=== PATIENT | female | born 1995 | race Caucasian/White ===

== ENCOUNTER 2016-05-27 12:15 | Day surgery (SDC) | payer MEDICAID ==
[~2016-05-27] VITALS: Ht 190.5 cm; Wt 114.9 kg
[2016-05-27] VITALS (25 sets, daily range): BP systolic 110–143; BP diastolic 56–94; PULSE 65–104; RESP 14–22; TEMP 97.2–98.5; O2SAT 93–100; Ht 190.5 cm; Wt 114.9 kg
[~2016-05-27 12:15] MED LIST: No current meds.
[2016-05-27] MEDS ORDERED: LR 1,000 ML IV PRN (12:40)
[2016-05-27] MEDS ORDERED: BUDE180A ORAL INH (12:46)
[2016-05-27] MEDS ORDERED: ALBU6.7H INH (12:46)
[2016-05-27] MEDS ORDERED: PREN1TAB73 PO (12:46)
--- NOTE | 2016-05-27 12:55 | ANESPREOP ---
Anesthesia Record Date and Time DATE: 05/27/16 TIME: 12:47 Pre-Op Diagnosis ectopic Proposed Surgical Procedure Laparoscopy Allergies: Coded Allergies: No Known Allergies (Unverified , 04/30/16) Ht/Wt/BMI Height: 6 ' 3.00 " Weight: kg BMI: kg/m2 Medications Inpatient Medications Current Medications Medications (Trade) Dose Ordered Sig/Lew Start Time Stop Time Status Last Admin Dose Admin Lactated Ringer's (Lactated Ringers) 1,000 ml @ 0 mls/hr Q0M PRN 05/27/16 12:40 Albuterol Sulfate (Proventil HFA 90 mcg/actuation) 200 Puff/6.7 G Inha, 1 PUFF INH Q4H PRN for SHORTNESS OF AIR/WHEEZING, (Reported) Budesonide (Pulmicort Flexhaler 180) 120 Puff/Inhaler Inha, 1 PUFF ORAL INH BID, (Reported) Pnv95/Ferrous Fumarate/FA ( Tablet) 1 Each Tablet, 1 TAB PO DAILY, ( Reported) [No current meds.] , (Reported) Currently on Beta Hien: No Medical/Surgical History Anesthesia PMH: Reports: Asthma (albuterol inhaler prn), Thyroid Disease (WHEN PG+), Denies: *Diabetes, *Hypertension, *OK, Anesthesia Reactions, Blood Transfusion Reac, CHF, COPD, CVA/Stroke/TIA, Cancer, Pacemaker, Seizures Smoking Status: Current every day smoker Has pt. smoked today?: Yes (1030) # of Packs per Day: 0.1 Use Chewing Tobacco?: No Second Hand Exposure: Yes Substance Use Type: does not use Alcohol Intake: none Past Surgical History Orthopedic Surgeries: No Abdominal Surgeries: No Genitourinary Surgeries: No Cardiac Surgeries: No Endocrine Surgeries: No Reproductive Surgeries: No Neurological Surgeries: No Ear Surgeries: No Nose Surgeries: No Throat Surgeries: No Other Surgeries: No Anesthesia Adverse Reactions: FOUND none Family Hx of Anesthesia Advers: none Hx of Motion Sickness: Yes Pertinent Findings EKG Rhythm: Sinus Rhythm Physical Exam Respiratory: Bilat breath sounds equal, Lungs clear Cardiovascular: FOUND Regular rate, rhythm, FOUND No murmur Airway Assessment Mallampati Score: I TMD: 3 Fingerbreadths Teeth: Other (tooth right front posterior to upper incisors) Overall Assessment: No Airway Concerns ASA: 2, E Plan Anesthesia Plan: GETA Discussion Discussed risks/options/alternatives of anesthesia and questions answered. Patient consents. Nursing pain assessment noted. Present: Parent Attestation Statement Prior to the delivery of any anesthetic medication, I examined the patient, developed the plan, obtained the patient's consent and discussed the risk and benefits of the procedure with the patient/guardian. Additional Information Patient has had Appendectomy, Cholecystectomy, Ectopic, C Section. No problems with Anesthesia noted ESTELLA HAM CRNA May 27, 2016 12:51
[2016-05-27] MEDS ORDERED: MIDAZOLAM 2mg/2ml INJECTION IV ONE (13:00)
[2016-05-27 13:11] LABS: BASOPHILS % (AUTO) 0.3 % (0-2); EOSINOPHILS # (AUTO) 0.1 T/MM3 (0-0.5); EOSINOPHILS % (AUTO) 1.9 % (0-4); HCT - HEMATOCRIT 38.7 % (36-46); HGB - HEMOGLOBIN 12.4 GM/DL (12-16); IMMATURE GRANULOCYTE # (AUTO) 0.02 T/MM3 (0.00-0.03); IMMATURE GRANULOCYTE % (AUTO) 0.3 % (0.0-0.5); LYMPHOCYTES # (AUTO) 1.9 T/MM3 (1-4.8); LYMPHOCYTES % (AUTO) 24.7 % (23-45); MEAN CORPUSCULAR HGB 28.7 UUG (26-34); MEAN CORPUSCULAR VOLUME 89.6 UM3 (80-100); MEAN PLATELET VOLUME 10.1 UM3 (9.4-12.4); MONOCYTES # (AUTO) 0.7 T/MM3 (0-0.8); MONOCYTES % (AUTO) 9.7 % (0-9.0); NEUTROPHILS #(AUTO)-ABSOLUTE 4.8 T/MM3 (1.8-7.7); NEUTROPHILS % (AUTO) 63.1 % (33-66); RED BLOOD COUNT 4.32 M/MM3 (4.00-5.20); WBC - WHITE BLOOD COUNT 7.5 T/MM3 (4.5-11.0)
[2016-05-27] MEDS ORDERED: ACET1TAB15 PO (13:12)
[2016-05-27 13:14] LABS: ALBUMIN 4.1 G/DL (3.5-5.0); ALBUMIN/GLOBULIN RATIO 1.2 RATIO (1.1-2.2); ALKALINE PHOSPHATASE 72 U/L (38-126); ALT (SGPT) 43 U/L (9-52); ANION GAP 12 MEQ/L (5-15); AST (SGOT) 28 U/L (14-36); BUN/CREATININE RATIO 16 RATIO (6-26); CALCIUM 9.2 MG/DL (8.4-10.2); CHLORIDE 105 MEQ/L (98-107); CO2 - CARBON DIOXIDE 26 MEQ/L (22-30); CREATININE 0.8 MG/DL (0.7-1.2); GLOMERULAR FILTRATION RATE 90; GLUCOSE 86 MG/DL (65-110); POTASSIUM 4.2 MEQ/L (3.6-5); SODIUM 143 MEQ/L (134-144); TOTAL PROTEIN 7.4 G/DL (6.3-8.2)
[2016-05-27] MEDS ORDERED: LIDOCAINE 1% (10mg/ml) 2ml SDV ID ONE (13:15)
[2016-05-27] MEDS ORDERED: PROPOFOL 200mg 20 ML IV ONE (13:17)
[2016-05-27] MEDS ORDERED: ROCURONIUM 50mg/5ml INJECTION IV ONE (13:17)
[2016-05-27] MEDS ORDERED: FENTANYL 250mcg/5ml INJECTION ONE (13:18)
[2016-05-27] MEDS ORDERED: BUPIVACAINE 0.25% (2.5mg/ml) INJ 30ml SDV ONE ×2 (13:26→14:02)
[2016-05-27] MEDS ORDERED: DEXAMETHASONE 4mg/ml - 1ml INJECTION ONE (13:55)
[2016-05-27] MEDS ORDERED: ONDANSETRON 4mg/2ml INJECTION ONE (13:55)
[2016-05-27] MEDS ORDERED: PHENYLEPHRINE 10mg/ml INJECTION ONE (14:23)
[2016-05-27] MEDS ORDERED: SALINE FLUSH 10ml SYRINGE ONE ×2 (14:23→14:33)
[2016-05-27] MEDS ORDERED: EPHEDRINE SULFATE 50mg/ml INJECTION ONE (14:33)
[2016-05-27] MEDS ORDERED: FENTANYL 100mcg/2ml INJECTION ONE ×2 (15:36→15:57)
[2016-05-27] MEDS ORDERED: SUGAMMADEX 200 MG/2 ML INJECTION IV ONE (16:02)
[2016-05-27] MEDS ORDERED: DimenhyDRINATE 50 MG in D5LR 1,000 ML IV SCH (16:24)
--- NOTE | 2016-05-27 16:24 | GYNOPNOTE1 ---
SURVEY INSTRUMENT OPERATOR Postoperative Note Date of Operation: 05/27/16 Preoperative Diagnosis: Ectopic Preoperative Dx Comments acute abdomen LLQ pain extending to whole left side Postoperative Diagnosis: Same as Preoperative Laparoscopy, evacuation of hematoperitoneum L linear salpingostomy with removal of ectopic partial L salpingectomy Surgeon: Benjamin Howard MD Leasing Director Surgeon: Polly Hallman MD Anesthesia Provider: Esequiel Merlos CRNA Anesthesia Type: general Complications could not get L fallopian tube to stop bleeding after lineal salpingostomy, so had to remove part of tube. Estimated Blood Loss: 500cc BENJAMIN HOWARD MD May 27, 2016 16:22
[2016-05-27] MEDS ORDERED: METOCLOPRAMIDE 10mg/2ml INJECTION IV PRN (16:30)
[2016-05-27] MEDS ORDERED: ONDANSETRON 4mg/2ml INJECTION IV PRN ×2 (16:30)
[2016-05-27] MEDS: HYDROMORPHONE 2mg/ml INJECTION IV PRN ×5 (16:40→22:25)
--- NOTE | 2016-05-27 17:14 | ANESPO ---
Post-Op Note Date 05/27/16 Time: 17:05 Status Pt Participated in Evaluation: Pt participated in person Vital Signs Date Time Temp Pulse Resp B/P Pulse Ox O2 Delivery O2 Flow Rate FiO2 05/27/16 17:10 85 19 118/67 93 Room Air 05/27/16 17:05 97.3 Respiratory Function: Airway patent Cardiovascular Function: Regular pulse Mental Status: Alert/oriented Pain Level Intensity: 4 Hydration: Taking po fluids Complications during Recovery None apparent Follow-Up Instructions Instructions Per Surgeon MATTHEW LOMELI CRNA May 27, 2016 17:14
--- NOTE | 2016-05-27 17:25 | NUR ---
ARRIVAL UPDATE PT ARRIVES TO ROOM 129 AT THIS TIME. PT IS A&OX3, RESP RATE IS EVEN AND NON LABORED, COMPLAINING OF PAIN TO HER ABD, RATES A 7/10. PTS SKIN IS PALE. PULSES ARE 2+ RADIALLY. 2 BANDAIDS NOTED TO LOWER PELVIC AREA AND 1 TO UMBILICUS, SCANT AMOUNT OF SEROSANGUINEOUS DRAINAGE NOTED. PTS SIGNIFICANT OTHER AT BEDSIDE. PT TEARFUL. WILL CONTINUE TO MONITOR.
--- NOTE | 2016-05-27 19:00 | NUR ---
update pt is still a&ox3, pt still has pain but is better than when she arrived, rating it as a 5/10. Pt's significant other is still at bedside, pt has been able to drink zips of water and has eaten a little bit of jello. Will continue to monitor.
[2016-05-27] MEDS: OXYCODONE/APAP 5mg/325mg TABLET PO PRN (21:05)
[2016-05-28] MEDS: IBUPROFEN 800 MG TABLET PO PRN ×2 (00:49→10:39)
--- NOTE | 2016-05-28 00:52 | NUR ---
COMFORT/STATUS MOTRIN 800MG GIVEN FOR 6/10 PAIN, "BAD FOR ME". SHE COULD ALSO HAVE PERCOCET AGAIN AT 0105 IF NEEDED. WILL CHECK BACK WITH HER. ENCOURAGED PO FLUIDS, PT ACCEPTED JELLO. WAS JUST IV LOCKED AT END OF ORDERED BAG.
[2016-05-28] MEDS: OXYCODONE/APAP 5mg/325mg TABLET PO PRN ×3 (01:15→11:26)
[2016-05-28 01:16] VITALS: BP 104/59; PULSE 73; RESP 20; TEMP 98; O2SAT 97
[2016-05-28] MEDS: HYDROMORPHONE 2mg/ml INJECTION IV PRN (04:08)
[2016-05-28 05:09] VITALS: BP 126/66; PULSE 64; RESP 20; TEMP 97.6; O2SAT 97
[2016-05-28 05:21] LABS: HCT - HEMATOCRIT 33.5 % (36-46); HGB - HEMOGLOBIN 10.7 GM/DL (12-16); MEAN CORPUSCULAR HGB 28.6 UUG (26-34); MEAN CORPUSCULAR HGB CONC(MCHC 31.9 GM/DL (31-37); MEAN CORPUSCULAR VOLUME 89.6 UM3 (80-100); MEAN PLATELET VOLUME 10.7 UM3 (9.4-12.4); RED BLOOD COUNT 3.74 M/MM3 (4.00-5.20); WBC - WHITE BLOOD COUNT 10.2 T/MM3 (4.5-11.0)
--- NOTE | 2016-05-28 06:44 | NUR ---
SUMMARY PT RESTED FOR PERIODS DURING THE NIGHT, NAUSEA CONTROLLED WITH A LITTLE TO EAT. PAIN TOLERATED WITH PO AND IV PAIN MEDS. LAST TOOK DILAUDID ABOUT 0400 THROUGH IV. PAIN ABOUT 6-8/10 IN LOWER ABD. HAS BEEN UP TO BATHROOM 2-3 TIMES VOIDING WELL WITHOUT DIFFICULTY. PT WANTED A REGULAR DIET SO SHE COULD CHOOSE WHAT TO ORDER FOR BREAKFAST. HAS HAD JELLO, CRACKERS AND APPLESAUCE ALREADY. V.S.S. 1 VPAD CHANGE POSTOP WITH SCANT DRAINAGE. MODERATE DRAINAGE ON 3 BAND-AIDS TO ABDOMEN WERE CIRCLED BY PREVIOUS RN.
[2016-05-28 08:00] VITALS: BP 115/64; PULSE 64; RESP 16; RESP 17; TEMP 97.3; O2SAT 99
--- NOTE | 2016-05-28 10:20 | GSPOSTPN ---
Postoperative Progress Note 05/28/16 vss af doing ok hgb drop noted disc her surgery q&a f/u thursday for suture removal. DESTINY HOWARD MD May 28, 2016 10:20
[2016-05-28] MEDS ORDERED: IBUP-1547 PO (10:25)
[2016-05-28] MEDS ORDERED: OXYC1TAB8 PO (10:25)
--- NOTE | 2016-05-28 11:15 | NUR ---
STATUS PATIENT AND FAMILY REQUEST TO TALK WITH CHARGE NURSE. PATIENT AND FAMILY VOICED CONCERNS IN REGARDS TO PRIMARY NURSE. PATIENT AND FAMILY REPORT TO THIS NURSE, PRIMARY NURSE WAS RUDE AND WOULD NOT GIVEN HER ANY MORE PAIN MEDICATION. THIS RN INFORMED PATIENT I WOULD LOOK AT THE EMAR AND SEE WHAT SHE COULD HAVE.
--- NOTE | 2016-05-28 11:26 | NUR ---
PAIN PATIENT REPORTS PAIN /10. PRN PERCOCET 5/325 GIVEN TO PATIENT AT THIS TIME PER PATIENT REQUEST. WILL CONTINUE TO MONITOR.
--- NOTE | 2016-05-28 12:00 | NUR ---
PAIN PATIENT REPORTS PAIN 5/10 AFTER PERCOCET GIVEN. THIS RN INFORMED PATIENT IF SHE DID NOT FEEL LIKE SHE WAS READY TO GO HOME SHE COULD STAY A LITTLE LONGER UNITL SHE FELT READY. PATIENT STATES,''IM READY TO GO HOME NOW. THANK YOU FOR YOUR HELP AND TAKING OVER MY CARE.'' RN VERBALIZED UNDERSTANDING.
--- NOTE | 2016-05-28 12:09 | NUR ---
DISMISSAL DISCHARGE INSTRUCTIONS, MEDICATIONS, AND EDUCATION ON ECTOPIC GIVEN AND DISCUSSED WITH PATIENT AND PATIENT'S MOTHER. DISCUSSES S/S OF INFECTION. DISCUSSED CARES AT SURGERY SITE. WRITTEN PRESCRIPTIONS GIVEN TO PATIENT UPON DISMISSAL. IVL D/C, CATHETER TIP INTACT. PATIENT DISMISSED TO ER ENTRANCE VIA WHEELCHAIR WITH NURSING STAFF. DISMISSED WITH MOTHER PER PRIVATE OWN VEHICLE.
--- NOTE | 2016-05-28 16:20 | OPNOTEF ---
DATE OF SURGERY 05/27/2016 PREOPERATIVE DIAGNOSIS 20-year-old white female, G5, P1 with suspected ruptured ectopic. Left lower quadrant pain extending to entire left side. Acute abdomen on exam. Status post methotrexate one week ago for ectopic . POSTOPERATIVE DIAGNOSIS Ectopic in left fallopian tube leaking blood out of the end of the tube. Hemoperitoneum. PROCEDURES Operative laparoscopy, left fallopian tube linear salpingostomy, removal of ectopic , partial salpingectomy due to fallopian tube bleeding. SURGEON Benjamin Ga MD E COMMERCE MERCHANT Polly Hallman MD EBL 500 mL DIRECTOR OF EMPLOYER SERVICES Esequiel Merlos CRNA COMPLICATIONS Left fallopian tube continued to bleed after the salpingostomy and removal of the ectopic and I could not get the bleeding to stop, s I had to end up removing the distal portion of the tube. This is a patient of mine that we have been following quantitative hCGs and they have not been rising appropriately. She had a sono last week and showed no intrauterine and no tubal so we gave a single dose protocol methotrexate on 05/21/2016. Her quant went up as expected on 05/24/2016 and then she was seen on 05/27/2016 in the office for follow-up and she could barely move and was doubled over with pain and unwilling to lay down flat. I assessed her as a surgical abdomen and sent her to the OR. FINDINGS 500 mL of blood in the abdomen upon entering and the fallopian tube on the verge of rupturing on the left side. Bleeding was occurring out the end of the fallopian tube. The right tube had previously been removed for an ectopic . DESCRIPTION OF PROCEDURE After adequate general anesthesia and intubation, the patient was prepped and draped in the low lithotomy position. A heavy weighted speculum was placed posteriorly and an anterior retractor was used to visualize the cervix which was grasped at the 12 o'clock position with an Allis clamp. The uterine manipulator was inserted as there was no intrauterine . I then approached the abdomen and did an open approach subumbilically after anesthetizing with Marcaine until I was through the fascia and saw the peritoneum and then I inserted a 5 mm trocar with a camera inside into the abdomen and then blew up the balloon at the bottom of it and insufflated the abdomen. The pneumoperitoneum was seen in the pelvis. I then placed a 5 mm bladeless through a suprapubic port 2 cm above the pubic symphysis after anesthetizing and making the incision. Then I inserted the suction wellfield technician and cleared the pelvis blood. I then identified the left fallopian tube and the ectopic as outlined above in Findings. I placed a left lower quadrant port 5 mm bladeless in the same fashion and then I had three ports in place and was able to operate. I spent the next hour and a half trying to perform a linear salpingostomy and remove the ectopic from the left fallopian tube and keep the tube because of the fact that it was her only remaining tube. I used the monopolar hook cautery to make the salpingostomy. Then I was able to shell out the and then I put in a 5 mm bag through the camera port, made it with the camera to the left lower quadrant and was able to pull out the ectopic and blood clots. I spent the next amount of time trying to achieve hemostasis on the tube. It continued to bleed. I used monopolar cautery and touched the edges and bleeding appeared to be coming from further above. I switched to bipolar cautery and cauterized the apex of the incision and the bleeding continued. I tried several other methods of suction irrigation to clear out and identify where the bleeding was coming from but it just kept continuing despite repeated efforts to minimally cauterize and stop the bleeding. So at some point in time, I made the decision that I wasn't going to be able to save this tube and I asked Dr. Hallman to come in and help and then I cauterized across the fallopian tube and excised the distal portion of the fallopian tube including encompassing where the ectopic was. I did this with bipolar cautery followed by scissors in a serial fashion until it was removed and then I put another 5 mm bag through the camera port and was able to remove the segment of the tube. Then I used copious amounts of irrigation to clear blood out of the abdomen. I tilted her out of Trendelenburg to get the blood to run down. I cleaned her pelvis and then with hemostasis being present, uterus appearing normal, ovaries appearing normal, then I concluded the procedure. CO2 was allowed to escape and the ports were removed under direct vision. Skin was closed at the 5 mm bladeless ports and I did a fascia closure on the umbilical 5 mm port with a 2-0 Vicryl and then 3-0 Vicryl was used and the skin to close the ports. Uterine manipulator was removed and the patient went to recovery room in stable condition. KAITLIN
== END 2016-05-28 12:09 | disposition home or self-care (01) ==
LOC: SCU 12:15 → SRG 16:36 → SCU 05-28 12:09
PROVIDERS: ATTEND Obstetrics & Gynecology
DX: O00.10 Tubal pregnancy without intrauterine pregnancy (principal); O08.1 Delayed or excessive hemorrhage following ectopic and molar pregnancy; Z79.899 Other long term (current) drug therapy; Z90.79 Acquired absence of other genital organ(s)
CPT/HCPCS: 36415; 80053; 85025; 85027; 86850; 86900; 86901; 86922